=== PATIENT | male | born 1935 | race Caucasian/White ===

== ENCOUNTER 2021-08-25 04:52 | Inpatient (IN) | payer MEDICARE ==
[~2021-08-25] VITALS: Ht 172.7 cm; Wt 52.4 kg
[2021-08-25 08:39] LABS: Basophils # (auto) 0 10 ^3/uL (0-0.2); Basophils % (auto) 0.2 % (0.0-2.0); Eosinophils # (auto) 0.1 10 ^3/uL (0-0.8); Eosinophils % (auto) 0.9 % (0.0-7.0); Hematocrit 36.9 % (41.0-53.0); Hemoglobin 12.1 g/dL (13.5-17.5); Lymphocytes # (auto) 1.2 10 ^3/uL (0.4-5.4); Lymphocytes % (auto) 13.4 % (10.0-50.0); Mean Corpuscular Hemoglobin 33.1 pg (28.0-32.0); Mean Corpuscular Hgb Conc. 32.7 g/dL (32.0-36.0); Mean Corpuscular Volume 101.2 fL (80.0-100.0); Monocytes # (auto) 0.6 10 ^3/uL (0-1.3); Monocytes % (auto) 7.4 % (0.0-12.0); Neutrophils # (auto) 6.8 10 ^3/uL (1.6-8.6); Neutrophils % (auto) 78.1 % (37.0-80.0); Red Blood Cells 3.64 10^6/uL (4.5-5.90); Red Cell Distribution Width 14.3 % (11.8-14.3); White Blood Cell 8.7 10^3/uL (4.4-10.8)
[2021-08-25 09:07] LABS: Albumin 3.3 g/dL (3.4-5.0); BUN/Creatinine Ratio 16.3; Bilirubin, Total 0.8 mg/dL (0.2-1.0); Magnesium 2.9 mg/dL (1.6-2.6); Total Protein 6.3 g/dL (6.4-8.2)
[2021-08-25 09:18] LABS: INR 1.1 (0.9-1.15); Partial Thromboplastin Time 23.6 sec (23.6-33.0)
[2021-08-25] MEDS ORDERED: HEPARIN SODIUM (PORCINE) 5000 UNITS/ML 1ML VIAL IV ONE (14:00)
[2021-08-25] MEDS: HEPARIN DRIP/D5W 100UNITS/ML 250 ML IV SCH (14:55)
[2021-08-25] MEDS ORDERED: NITROGLYCERIN 0.4 MG SL TAB SL PRN (15:30)
[2021-08-25] MEDS ORDERED: MORPHINE SULFATE INJECTION 2 MG/ML SYRG IV PRN (15:30)
[2021-08-25 16:26] LABS: Cholesterol 117 mg/dL (< 200); HDL Cholesterol 62 mg/dL (40-59); LDL Cholesterol 48 mg/dL (< 100); Triglycerides 94 mg/dL (< 150)
[2021-08-25] MEDS ORDERED: CLOP75TA70 PO (20:30)
[2021-08-25] MEDS ORDERED: METO25TA5 PO (20:30)
[2021-08-25] MEDS ORDERED: MELA3TAB27 PO (20:30)
[2021-08-25] MEDS ORDERED: ASPI-543 PO (20:30)
[2021-08-25] MEDS ORDERED: ATOR80TA PO (20:30)
[2021-08-25 22:00] VITALS: BP 153/80
[2021-08-25 23:01] LABS: INR 1.13 (0.9-1.15); Partial Thromboplastin Time 45.6 sec (23.6-33.0)
[2021-08-26] MEDS ORDERED: BENAZEPRIL HCL 10 MG TAB PO ONE (01:15)
[2021-08-26] MEDS ORDERED: ATORVASTATIN 20 MG TAB PO ONE (01:15)
[2021-08-26] MEDS ORDERED: NITROGLYCERIN 0.4 MG SL TAB SL PRN (01:15)
[2021-08-26] MEDS ORDERED: HYDROcodone-ACET 5/325MG TAB PO PRN (01:15)
[2021-08-26] MEDS ORDERED: METOPROLOL SUCCINATE XL 50 MG TAB PO ONE (01:15)
[2021-08-26] MEDS ORDERED: SODIUM CHLORIDE 0.9% 1,000 ML IV SCH (01:15)
[2021-08-26] MEDS ORDERED: MORPHINE SULFATE INJECTION 2 MG/ML SYRG IV PRN ×2 (01:15)
[2021-08-26 02:07] LABS: Alcohol, Urine < 3.0 mg/dL (0-10); Amphetamine Screen, Urine NEGATIVE (NEGATIVE); Barbiturate Scree,Urine NEGATIVE (NEGATIVE); Benzodiazephine Screen, Urine NEGATIVE (NEGATIVE); Cannabinoid Screen, Urine NEGATIVE (NEGATIVE); Cocaine Screen, Urine NEGATIVE (NEGATIVE); Opiate Scree,Urine NEGATIVE (NEGATIVE); Phencyclidine Screen, Urine NEGATIVE (NEGATIVE)
[2021-08-26 02:13] LABS: Urine Bacteria NONE SEEN /hpf (None Seen); Urine Blood Negative /uL (Negative); Urine Mucus FEW (None Seen); Urine Specific Gravity 1.015 (1.001-1.035); Urine WBC 2 /hpf (0 - 3)
[2021-08-26 04:30] VITALS: BP 153/79
[2021-08-26 05:06] LABS: Basophils # (auto) 0 10 ^3/uL (0-0.2); Basophils % (auto) 0.6 % (0.0-2.0); Eosinophils # (auto) 0.2 10 ^3/uL (0-0.8); Hematocrit 37.1 % (41.0-53.0); Hemoglobin 12.5 g/dL (13.5-17.5); Lymphocytes # (auto) 1.5 10 ^3/uL (0.4-5.4); Mean Corpuscular Hemoglobin 32.9 pg (28.0-32.0); Mean Corpuscular Hgb Conc. 33.8 g/dL (32.0-36.0); Mean Corpuscular Volume 97.5 fL (80.0-100.0); Monocytes # (auto) 0.8 10 ^3/uL (0-1.3); Monocytes % (auto) 10.6 % (0.0-12.0); Neutrophils # (auto) 4.7 10 ^3/uL (1.6-8.6); Neutrophils % (auto) 64.8 % (37.0-80.0); Red Cell Distribution Width 13.9 % (11.8-14.3); White Blood Cell 7.3 10^3/uL (4.4-10.8)
[2021-08-26 05:19] LABS: Albumin 3.4 g/dL (3.4-5.0); Calcium 8.2 mg/dL (8.5-10.1); Potassium 3.5 mmol/L (3.5-5.1); Uric Acid 3.8 mg/dL (3.5-7.2)
[2021-08-26 05:25] LABS: BUN/Creatinine Ratio 9.2; Bilirubin, Total 1.2 mg/dL (0.2-1.0); Phosphorus 2.2 mg/dL (2.5-4.90); Total Protein 6.7 g/dL (6.4-8.2)
[2021-08-26 05:28] LABS: INR 1.09 (0.9-1.15)
[2021-08-26 05:32] LABS: Partial Thromboplastin Time 85.7 sec (23.6-33.0)
[2021-08-26] MEDS: ASPirin 81 mg TAB PO SCH (08:53)
[2021-08-26] MEDS: BENAZEPRIL HCL 10 MG TAB PO SCH (08:56)
[2021-08-26] MEDS ORDERED: METOPROLOL SUCCINATE XL 50 MG TAB PO SCH (10:00)
[2021-08-26] MEDS ORDERED: POTASSIUM PHOSPHATE 22 MEQ in SODIUM CHL 0.9% 100 ML IV ONE (10:00)
[2021-08-26] MEDS ORDERED: FUROSEMIDE 40 MG/4 ML VIAL IV ONE (10:00)
[2021-08-26] MEDS ORDERED: hydrALAZINE HCL 20 MG/ML VL IV PRN (12:15)
[2021-08-26] MEDS: HEPARIN DRIP/D5W 100UNITS/ML 250 ML IV SCH ×2 (14:00→22:49)
[2021-08-26 14:30] LABS: INR 1.1 (0.9-1.15); Partial Thromboplastin Time 59.2 sec (23.6-33.0)
[2021-08-26] MEDS ORDERED: HALOPERIDOL LACTATE 5 MG/ML INJ VIAL IM ONE (15:45)
[2021-08-26] MEDS ORDERED: HALOPERIDOL LACTATE 5 MG/ML INJ VIAL ONE (15:47)
[2021-08-26 20:57] LABS: INR 1.13 (0.9-1.15)
[2021-08-26 21:38] VITALS: BP 110/68
[2021-08-26] MEDS: FUROSEMIDE 20 MG/2 ML VIAL IV SCH (21:57)
[2021-08-26] MEDS: ATORVASTATIN 20 MG TAB PO SCH (21:58)
[2021-08-26] MEDS ORDERED: ATORVASTATIN 20 MG TAB PO SCH (22:00)
[2021-08-27 03:26] LABS: INR 1.07 (0.9-1.15)
[2021-08-27 03:30] LABS: Partial Thromboplastin Time 77.6 sec (23.6-33.0)
[2021-08-27 05:00] VITALS: BP 121/75
[2021-08-27 05:10] LABS: BUN/Creatinine Ratio 19.2; Calcium 8.8 mg/dL (8.5-10.1); Magnesium 2.2 mg/dL (1.6-2.6); Potassium 3.8 mmol/L (3.5-5.1)
[2021-08-27 08:53] LABS: INR 1.1 (0.9-1.15); Partial Thromboplastin Time 58.4 sec (23.6-33.0)
[2021-08-27 09:00] VITALS: BP 144/75
[2021-08-27] MEDS ORDERED: FUROSEMIDE 20 MG/2 ML VIAL IV SCH (10:00)
[2021-08-27] MEDS: ASPirin 81 mg TAB PO SCH (10:12)
[2021-08-27] MEDS: METOPROLOL SUCCINATE XL 50 MG TAB PO SCH (10:12)
[2021-08-27] MEDS: FUROSEMIDE 20 MG/2 ML VIAL IV SCH ×2 (10:13→23:03)
[2021-08-27] MEDS: BENAZEPRIL HCL 10 MG TAB PO SCH (10:13)
[2021-08-27 14:06] LABS: INR 1.29 (0.9-1.15); Partial Thromboplastin Time 44.7 sec (23.6-33.0)
[2021-08-27] MEDS: HEPARIN DRIP/D5W 100UNITS/ML 250 ML IV SCH (14:55)
[2021-08-27 17:10] VITALS: BP 129/74
[2021-08-27 20:00] VITALS: BP 144/75
[2021-08-27] MEDS: LORazepam 0.5 MG TAB PO PRN (21:37)
[2021-08-27 22:00] VITALS: BP 126/72
[2021-08-27 22:09] LABS: INR 1.06 (0.9-1.15); Partial Thromboplastin Time 61.8 sec (23.6-33.0)
[2021-08-27] MEDS: ATORVASTATIN 20 MG TAB PO SCH (23:03)
[2021-08-28 06:25] LABS: Basophils # (auto) 0 10 ^3/uL (0-0.2); Basophils % (auto) 0.6 % (0.0-2.0); Eosinophils # (auto) 0.4 10 ^3/uL (0-0.8); Eosinophils % (auto) 4.8 % (0.0-7.0); Hematocrit 38.7 % (41.0-53.0); Hemoglobin 13.2 g/dL (13.5-17.5); Lymphocytes # (auto) 1.9 10 ^3/uL (0.4-5.4); Lymphocytes % (auto) 24.1 % (10.0-50.0); Mean Corpuscular Hemoglobin 33.1 pg (28.0-32.0); Mean Corpuscular Hgb Conc. 34.1 g/dL (32.0-36.0); Mean Corpuscular Volume 97.1 fL (80.0-100.0); Monocytes # (auto) 0.8 10 ^3/uL (0-1.3); Monocytes % (auto) 10.1 % (0.0-12.0); Neutrophils # (auto) 4.9 10 ^3/uL (1.6-8.6); Neutrophils % (auto) 60.4 % (37.0-80.0); Nucleated Red Blood Cells % 0.1 %; Red Blood Cells 3.99 10^6/uL (4.5-5.90); Red Cell Distribution Width 13.9 % (11.8-14.3)
[2021-08-28 06:37] LABS: INR 1.09 (0.9-1.15)
[2021-08-28 06:55] LABS: Partial Thromboplastin Time 99.3 sec (23.6-33.0)
[2021-08-28 07:05] LABS: BUN/Creatinine Ratio 24.5; Potassium 3.7 mmol/L (3.5-5.1)
[2021-08-28 07:06] LABS: Calcium 8.7 mg/dL (8.5-10.1)
[2021-08-28 08:00] VITALS: BP 137/92
[2021-08-28] MEDS: HEPARIN DRIP/D5W 100UNITS/ML 250 ML IV SCH (08:13)
[2021-08-28 09:00] VITALS: BP 137/92
[2021-08-28] MEDS: METOPROLOL SUCCINATE XL 50 MG TAB PO SCH (10:21)
[2021-08-28] MEDS: ASPirin 81 mg TAB PO SCH (10:21)
[2021-08-28] MEDS: FUROSEMIDE 20 MG/2 ML VIAL IV SCH ×2 (10:21→21:48)
[2021-08-28] MEDS: BENAZEPRIL HCL 10 MG TAB PO SCH (10:22)
[2021-08-28 12:11] VITALS: BP 104/94
[2021-08-28] MEDS: LORazepam 0.5 MG TAB PO PRN ×2 (15:46→22:50)
[2021-08-28 16:00] VITALS: BP 90/56
[2021-08-28 21:40] VITALS: BP 109/64
[2021-08-28] MEDS: ATORVASTATIN 20 MG TAB PO SCH (21:47)
[2021-08-29 05:02] VITALS: BP 101/61
[2021-08-29] MEDS: FUROSEMIDE 20 MG/2 ML VIAL IV SCH (09:06)
[2021-08-29] MEDS: ASPirin 81 mg TAB PO SCH (09:06)
[2021-08-29] MEDS: METOPROLOL SUCCINATE XL 50 MG TAB PO SCH (09:07)
[2021-08-29] MEDS: BENAZEPRIL HCL 10 MG TAB PO SCH (09:07)
[2021-08-29 10:47] VITALS: BP 121/73
[2021-08-29 13:21] VITALS: BP 89/52
== END 2021-08-29 14:50 | disposition home health service (06) | DRG 280 ==
LOC: ER 04:52 → EDBD 04:52 → TELE 15:23 → TELE-CENTR 18:34 → TELE-WESTW 21:20
PROVIDERS: ADMIT Hospitalist; ATTEND Internal Medicine
DX: I21.4 Non-ST elevation (NSTEMI) myocardial infarction (principal); I50.41 Acute combined systolic (congestive) and diastolic (congestive) heart failure; R57.0 Cardiogenic shock; I48.19 Other persistent atrial fibrillation; E44.1 Mild protein-calorie malnutrition; Z68.1 Body mass index [BMI] 19.9 or less, adult; D68.59 Other primary thrombophilia; E78.5 Hyperlipidemia, unspecified; I25.10 Atherosclerotic heart disease of native coronary artery without angina pectoris; D64.9 Anemia, unspecified; I25.5 Ischemic cardiomyopathy; F03.90 Unspecified dementia, unspecified severity, without behavioral disturbance, psychotic disturbance, mood disturbance, and anxiety; Z20.822 Contact with and (suspected) exposure to COVID-19; I49.5 Sick sinus syndrome; I11.0 Hypertensive heart disease with heart failure; I25.2 Old myocardial infarction; Z95.0 Presence of cardiac pacemaker; Z95.1 Presence of aortocoronary bypass graft; Z95.5 Presence of coronary angioplasty implant and graft; Z79.899 Other long term (current) drug therapy
CPT/HCPCS: 36415; 36600; 71045; 80048; 80053; 80061; 80307; 81001; 82306; 82607; 82805; 83036; 83735; 83880; 84100; 84443; 84484; 84550; 85025; 85610; 85730; 87040; 87086; 87426; 93005; 93306; 93886; 96365; 96375; G0378